=== PATIENT | female | born 1955 | race Caucasian/White ===

== ENCOUNTER 2019-06-29 14:33 | Inpatient (IN) | payer MEDICARE, OTHER ==
[2019-06-29 18:12] LABS: HCT 32.9 % (34.0-46.0); HGB 10.7 gm/dL (11.4-16.0); MCH 28.2 pg (25.0-35.0); MCHC 32.5 g/dL (31.0-37.0); MCV 86.9 fL (80.0-100.0); Mean Platelet Volume 7.5; Platelet Count 174 k/uL (150-450); RBC 3.79 m/uL (3.80-5.40); RDW 14.4 % (11.5-15.5); WBC 11.8 k/uL (3.8-10.6)
[2019-06-29] MEDS ORDERED: BISACODYL 5 MG TABLET.DR PO PRN (18:20)
[2019-06-29] MEDS ORDERED: NALOXONE 0.4 MG/ML 1 ML VIAL IV PRN (18:20)
[2019-06-29] MEDS ORDERED: ONDANSETRON 4 MG/2 ML VIAL IVP PRN (18:20)
[2019-06-29 18:23] LABS: Albumin 3.2 g/dL (3.5-5.0); Magnesium 1.3 mg/dL (1.6-2.3); Phosphorus 2.9 mg/dL (2.5-4.5); Potassium 4.2 mmol/L (3.5-5.1); Total Bilirubin 0.4 mg/dL (0.2-1.3); Total Protein 5.9 g/dL (6.3-8.2)
[2019-06-29] MEDS ORDERED: VANCOMYCIN IV PER PHARMACY 1 EACH MISC MISCELLANE PRN (18:23)
[2019-06-29] MEDS ORDERED: ALPRAZolam 0.25 MG TAB PO PRN (18:24)
[2019-06-29] MEDS ORDERED: FLUTICASONE 50MCG/SPRAY NASAL 16GM NASAL PRN (18:24)
[2019-06-29] MEDS ORDERED: CYCLOBENZAPRINE 5 MG TAB PO PRN (18:24)
--- NOTE | 2019-06-29 18:24 | XR ---
EXAMINATION TYPE: XR chest 1V portable DATE OF EXAM: 06/29/2019 COMPARISON: 03/26/2015 INDICATION: Short of breath cough TECHNIQUE: Single frontal view of the chest is obtained. FINDINGS: The heart size is normal. The pulmonary vasculature is normal. The lungs are clear. IMPRESSION: 1. No acute pulmonary process.
--- NOTE | 2019-06-29 18:29 | P.HPIM ---
History of Present Illness H&P Date: 06/29/19 Chief Complaint: fevers Patient is a 63-year-old female with past medical history of hypertension, insulin-dependent diabetes mellitus, dyslipidemia, congestive heart failure, prior pituitary tumor, and multiple other medical conditions as listed below who was transferred here from [facility] secondary to sepsis and bacteremia. She states that on June 20 she underwent a left urethral stent placed secondary to a "swollen kidney". After this she states she was having left-sided flank pain, increased urination, and excruciating pain with urination. On 06/28 she woke up and didn't feel well and then went back to bed. When she woke up again she was having chills and riders. She was so weak she felt she could not get out of bed and she subsequently called her friends to help assist her out of bed. She called Dr. Mercedes's answering service who dir ected her to come to the hospital. At [place] she underwent an extensive evaluation. She was admitted to observation. She had a CT abdomen and pelvis done which showed a double J stent on the left that appears appropriately positioned with no hydronephrosis, extensive vascular calcifications, hepatomegaly, and old granulomatous disease of the spleen. There is also uncomplicated diverticulosis of the sigmoid colon and post surgical and degenerative changes of the spine. There was concern for urinary tract infection and she was subsequently placed in observation. Initial workup demonstrated a urinalysis with white blood cells of 3-5 and red blood cells with 3-5 associated with 2+ leukocyte esterase and negative nitrites. Her lactic acid was elevated at 2.8. Influenza was negative. Initial troponin was negative. White blood cell count was 8.16, hemoglobin 12.2, hematocrit 38, platelets 195, sodium 135, potassium 4.6, chloride 106, CO2 20, BUN 16, and creatinine of 1. Liver enzymes were normal. Initial pro-calcitonin was 0.23. After admission she spiked a fever of 103.6 she was started on vancomycin and Zosyn. Apparently initial blood cultures came back positive for Gram-positive cocci. Apparently pro-calcitonin was redrawn today and was 96.1. Her lactic acid had improved to 1.2. Creatinine had increased to 1.2. This morning her initial white blood cell count was 13.47 and her troponin had increased to 0.7. They repeated blood work later this afternoon and repeat troponin was 0.851 and white blood cell count had increased to 15. Case was discussed with Dr. Mercedes who suggested patient be transferred here. Patient seen and examined at bedside. She recounts the story as above that she woke up yesterday with severe chills, rigors, and weakness. She states that her fevers and 101.1. Her major change in symptoms with a nonproductive cough that was so bad she started having abdominal pain and back pain. She also reports a headache that has been unrelenting since yesterday. She states that she continues to have dysuria, lower abdominal cramping, urinary incontinence secondary to urgent not be able to make it to the bathroom in time, and increased urinary frequency. Her urinary symptoms have been present since she had her stent placed on June 20. She has chronic diarrhea that she feels is unchanged. She is also reporting some flank pain. She has no other complaints currently. Review of Systems Pertinent positives and negatives as discussed in HPI, a complete review of systems was performed and all other systems are negative. Past Medical History Past Medical History: Asthma, Diabetes Mellitus, Hyperlipidemia, Hypertension, Osteoarthritis (OA), Skin Disorder Additional Past Medical History / Comment(s): neuropathy - feet, psoriasis, kidney stones, UTI, cellulitis History of Any Multi-Drug Resistant Organisms: None Reported Past Surgical History: Back Surgery, Cholecystectomy, Hysterectomy Additional Past Surgical History / Comment(s): lap band now removed, removed tumor from pituatary gland, EGD with ballooning of stenosis secondary to lap band Past Anesthesia/Blood Transfusion Reactions: Postoperative Nausea & Vomiting (PONV) Past Psychological History: Anxiety, Depression Smoking Status: Former smoker Additional History: Lives independently, no assistive devices - Past Family History Mother Family Medical History: Cancer, Hypertension Additional Family Medical History / Comment(s): MS Medications and Allergies Home Medications Medication Instructions Recorded Confirmed Type ALPRAZolam [Xanax] 0.25 mg PO TID PRN 06/29/19 06/29/19 History Acetaminophen Tab [Tylenol Tab] 650 mg PO BID 06/29/19 06/29/19 History Albuterol Inhaler [Ventolin Hfa 1 - 2 puff INHALATION RT-Q6H PRN 06/29/1906/29 History Inhaler] Aspirin [Adult Low Dose Aspirin EC] 81 mg PO DAILY 06/29/19 06/29/19 History Bisoprolol [Zebeta] 10 mg PO DAILY 06/29/19 06/29/19 History Budesonide/Formoterol Fumarate 06/29/19 History [Symbicort 80-4.5 Mcg Inhaler] Calcipotriene 06/29/19 History Citalopram Hydrobromide [CeleXA] 40 mg PO DAILY 06/29/19 06/29/19 History Cyclobenzaprine [Flexeril] 5 mg PO TID PRN 06/29/19 06/29/19 History Ezetimibe [Zetia] 10 mg PO DAILY 06/29/19 06/29/19 History Fenofibrate Nanocrystallized 145 mg PO DAILY 06/29/19 06/29/19 History [Tricor] Fluticasone Nasal [place] [Flonase 50 mcg NASAL PRN 06/29/19 History Nasal [place]] Insulin Glargine,Hum.rec.anlog 53 unit SQ HS 06/29/19 06/29/19 History [Basaglar Kwikpen U-100] Iron 65 mg PO DAILY 06/29/19 06/29/19 History Loratadine [Claritin] 10 mg PO PRN 06/29/19 History Losartan Potassium [Cozaar] 100 mg PO DAILY 06/29/19 06/29/19 History Pantoprazole Sodium [Protonix] 40 mg PO DAILY 06/29/19 06/29/19 History Pregabalin [Lyrica] 75 mg PO DAILY 06/29/19 06/29/19 History amLODIPine [Norvasc] 5 mg PO DAILY 06/29/19 06/29/19 History cloNIDine HCL [Catapres] 0.1 mg PO DAILY 06/29/19 06/29/19 History metFORMIN HCL 1,000 mg PO BID 06/29/19 06/29/19 History Allergies Allergy/AdvReac Type Severity Reaction Status Date / Time acetaminophen Allergy Nausea & Verified 06/29/19 17:07 [From Darvocet-N] Vomiting ciprofloxacin [From Cipro] Allergy Nausea & Verified 06/29/19 17:07 Vomiting codeine Allergy Nausea & Verified 06/29/19 17:07 Vomiting lisinopril Allergy Cough Verified 06/29/19 17:07 morphine Allergy Itching Verified 06/29/19 17:07 propoxyphene Allergy Nausea & Verified 06/29/19 17:07 [From Darvocet-N] Vomiting sulfamethoxazole Allergy Rash/Hives Verified 06/29/19 17:07 [From Bactrim] tramadol [From Ultram] Allergy Nausea & Verified 06/29/19 17:07 Vomiting trimethoprim [From Bactrim] Allergy Rash/Hives Verified 06/29/19 17:07 ketorolac [From Toradol] AdvReac Nausea & Verified 06/29/19 17:54 Vomiting Physical Exam Osteopathic Statement: *. No significant issues noted on an osteopathic structural exam other than those noted in the History and Physical/Consult. Vitals: Vital Signs Temp Pulse Resp BP Pulse Ox 06/29/19 16:30 98.1 F 83 16 140/72 96 Intake and Output 06/29/19 06/29/19 06/29/19 06:59 14:59 22:59 Other: Weight 106 kg General: Ill-appearing, no distress, appears at stated age, normal weight, obese Derm: no unusual rashes/lesions no unusual ecchymoses, warm, dry Head: atraumatic, normocephalic, symmetric Eyes: EOMI, no lid lag, anicteric sclera, pupils equal round reactive to light ENT: Nose and ears atraumatic, no thrush, no pharyngeal erythema Neck: No thyromegaly, no cervical lymphadenopathy, trachea midline, supple Mouth: no lip lesion, mucus membranes dry Cardiovascular: S1S2 reg, no murmur, positive posterior tibial pulse bilateral, no edema, capillary refill less than 2 seconds Lungs: Decreased breath sounds bilateral secondary to body habitus, no rhonchi, no rales , no accessory muscle use Abdominal: soft, nontender to palpation, no guarding, no appreciable organomegaly, normal bowel sounds Ext: no gross muscle atrophy, muscle strength 5 out of 5 in all 4 extremities grossly, no contractures, Neuro: CN II-XI grossly intact, light touch intact all 4 extremities, finger to nose within normal limits, Psych: Alert, oriented, appropriate affect Results CT scan - abdomen: report reviewed CT scan - pelvis: report reviewed Thrombosis Risk Factor Assmnt - DVT/VTE Prophylaxis DVT/VTE Prophylaxis: Mechanical Prophylaxis ordered - Choose All That Apply Each Factor Represents 1 point: Obesity (BMI >25) Each Risk Factor Represents 2 Points: Age 61-74 years Thrombosis Risk Factor Assessment Total Risk Factor Score: 3 Thrombosis Risk Factor Assessment Level: Moderate Risk Assessment and Plan Assessment: Bacteremia with sepsis - Gram positive cocci per verbal report from Dr. Shelton - [place] -IV fluids -Repeat blood culture stat -Check chest x-ray secondary to patient's complaints of cough -Repeat urinalysis -Repeat lactic acid -Pro calcitonin 96.2 up from 0.23 likely consistent with pulmonary source or severe sepsis -Repeat stat CBC Recent urethral stent placement -Initial urinalysis from [facility] does not appear infectious to me -Repeat urinalysis -Consult Dr. Mercedes Diabetes mellitus type 2 insulin requiring -Continue with long-acting insulin, add sliding scale, hold metformin -Follow blood sugars -Check hemoglobin A1c Elevated troponin - likely stress induced - repeat troponin Hypertension, controlled -Follow blood pressures -Continue with Cozaar, Catapres, Norvasc, bisoprolol Asthma without exacerbation -Continue with Flonase, Claritin, Symbicort -As needed albuterol Neuropathy -Lyrica Dyslipidemia -Zetia and TriCor Morbid obesity -Structured outpatient weight loss Chronic: Arthritis History of congestive heart failure before pituitary tumor was removed, however has not had again since pituitary tumor was removed The patient is admitted with an anticipated greater than 2 midnight stay for evaluation of Bacteremia with sepsis. Surrogate decision-maker: Daughter- Amanda Clark CODE STATUS:Full DVT prophylaxis: SCDs Discussed with: Patient, nursing, Dr. Shelton Anticipated discharge date: 3-[address]: home A total of 75 minutes was spent on the care of this complex patient more than 50% of the time was spent in counseling and care coordination.
[2019-06-29 18:42] LABS: INR 1.1 (<1.2); Prothrombin Time 11.5 sec (9.0-12.0)
[2019-06-29] MEDS: KETOROLAC 30 MG/ML 1 ML VIAL IVP PRN (19:15)
[2019-06-29] MEDS: ACETAMINOPHEN TAB 325 MG TAB PO PRN (19:16)
[2019-06-29] MEDS: SODIUM CHLORIDE 0.9% 1,000 ML IV SCH (19:20)
[2019-06-29 19:46] LABS: Glucose,Whole Blood 154 mg/dL (75-99)
[2019-06-29] MEDS ORDERED: VANCOMYCIN 1,750 MG in SODIUM CHLORIDE 0.9% 500 ML 500 ML IVPB SCH (20:00)
[2019-06-29] MEDS: SYMBICORT 80-4.5 MCG INHALER INHALATION SCH (20:18)
[2019-06-29] MEDS: INSULIN DETEMIR (LEVEMIR) 100 UNIT/ML SYR SQ SCH (21:19)
[2019-06-29] MEDS: INSULIN ASPART (NovoLOG) 100 UNIT/ML VIAL SQ SCH (21:19)
--- NOTE | 2019-06-29 21:20 | P.GSCN ---
History of Present Illness Consult date: 06/29/19 Reason for Consult: Sepsis from UTI and history of left hydronephrosis History of present illness: The patient is a 63-year-old female transferred from [facility] for treatment of sepsis related to a urinary tract infection. Her history dates back to earlier this year and she describes being treated for several urinary tract infections. She says she's also passed 2 kidney stones. She was seen by Dr. Rocha and apparently noted to have an elevated post void residual at the time of cystoscopy and left hydronephrosis on a renal ultrasound. She underwent cystoscopy on 06/20 as an outpatient under general anesthesia and apparently was found to have some scarring in the left ureter which was treated with placement of a double-J catheter. The patient does not believe any residual stones were noted. She was treated with Keflex for 3 days following the surgery. Yesterday morning she developed shaking chills and a fever. She also had a cough. She called me and I instructed her to go to her local emergency room for evaluation. She was admitted due to a temperature 103 and was started on IV antibiotics. I was told a preliminary urine culture apparently is growing a gram-positive coccus and the patient is currently receiving Zosyn and vancomycin. The patient says that her chills and fever have resolved since yesterday evening. She did have a lactic acid of 2.8 at the time of admission and a white blood count over 13,000. CT scan was obtained but there was no evidence of hydronephrosis on the left side and the double-J catheter appeared to be in good position. CXR showed no evidence of pneumonia. Due to her sepsis it was elected to transfer her to a hospital that could better care for her sepsis. The patient says she usually voids every 2-3 hours during the day and once or twice at night. She says that she's been voiding more frequently ever since she had the double-J catheter placed. She says she is also voiding more frequently because she was told she had an elevated postvoid residual and that voiding frequently and double voiding would be helpful. Review of Systems - Constitutional Reports chills, Reports fever - Cardiovascular Reports high blood pressure - Respiratory Reports cough - Gastrointestinal Denies abdominal pain - Genitourinary Genitourinary: Reports as per HPI Past Medical History Past Medical History: Asthma, Diabetes Mellitus, Hyperlipidemia, Hypertension, Osteoarthritis (OA), Skin Disorder Additional Past Medical History / Comment(s): neuropathy - feet, psoriasis, kidney stones, UTI, cellulitis History of Any Multi-Drug Resistant Organisms: None Reported Past Surgical History: Back Surgery, Cholecystectomy, Hysterectomy Additional Past Surgical History / Comment(s): lap band now removed, 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, EGD with ballooning of stenosis secondary to lap band Past Anesthesia/Blood Transfusion Reactions: Postoperative Nausea & Vomiting (PONV) Past Psychological History: Anxiety, Depression Smoking Status: Former smoker - Past Family History Mother Family Medical History: Cancer, Hypertension Additional Family Medical History / Comment(s): MS Medications and Allergies Home Medications Medication Instructions Recorded Confirmed Type ALPRAZolam [Xanax] 0.25 mg PO TID PRN 06/29/19 06/29/19 History Acetaminophen Tab [Tylenol Tab] 650 mg PO BID 06/29/19 06/29/19 History Albuterol Inhaler [Ventolin Hfa 1 - 2 puff INHALATION RT-Q6H PRN 06/29/19 06/29/19 History Inhaler] Aspirin [Adult Low Dose Aspirin EC] 81 mg PO DAILY 06/29/19 06/29/19 History Bisoprolol [Zebeta] 10 mg PO DAILY 06/29/19 06/29/19 History Budesonide/Formoterol Fumarate 06/29/19 History [Symbicort 80-4.5 Mcg Inhaler] Calcipotriene 06/29/19 History Citalopram Hydrobromide [CeleXA] 40 mg PO DAILY 06/29/19 06/29/19 History Cyclobenzaprine [Flexeril] 5 mg PO TID PRN 06/29/19 06/29/19 History Ezetimibe [Zetia] 10 mg PO DAILY 06/29/19 06/29/19 History Fenofibrate Nanocrystallized 145 mg PO DAILY 06/29/19 06/29/19 History [Tricor] Fluticasone Nasal [place] [Flonase 50 mcg NASAL PRN 06/29/19 History Nasal [place]] Insulin Glargine,Hum.rec.anlog 53 unit SQ HS 06/29/19 06/29/19 History [Cataglmanoj Matos U-100] Iron 65 mg PO DAILY 06/29/19 06/29/19 History Loratadine [Claritin] 10 mg PO PRN 06/29/19 History Losartan Potassium [Cozaar] 100 mg PO DAILY 06/29/19 06/29/19 History Pantoprazole Sodium [Protonix] 40 mg PO DAILY 06/29/19 06/29/19 History Pregabalin [Lyrica] 75 mg PO DAILY 06/29/19 06/29/19 History amLODIPine [Norvasc] 5 mg PO DAILY 06/29/19 06/29/19 History cloNIDine HCL [Catapres] 0.1 mg PO DAILY 06/29/19 06/29/19 History metFORMIN HCL 1,000 mg PO BID 06/29/19 06/29/19 History Allergies Allergy/AdvReac Type Severity Reaction Status Date / Time acetaminophen Allergy Nausea & Verified 06/29/19 17:07 [From Darvocet-N] Vomiting ciprofloxacin [From Cipro] Allergy Nausea & Verified 06/29/19 17:07 Vomiting codeine Allergy Nausea & Verified 06/29/19 17:07 Vomiting lisinopril Allergy Cough Verified 06/29/19 17:07 morphine Allergy Itching Verified 06/29/19 17:07 propoxyphene Allergy Nausea & Verified 06/29/19 17:07 [From Darvocet-N] Vomiting sulfamethoxazole Allergy Rash/Hives Verified 06/29/19 17:07 [From Bactrim] tramadol [From Ultram] Allergy Nausea & Verified 06/29/19 17:07 Vomiting trimethoprim [From Bactrim] Allergy Rash/Hives Verified 06/29/19 17:07 ketorolac [From Toradol] AdvReac Nausea & Verified 06/29/19 17:54 Vomiting Surgical - Exam Vital Signs Temp Pulse Resp BP Pulse Ox 98.1 F 83 16 140/72 96 06/29/19 16:30 06/29/19 16:30 06/29/19 16:30 06/29/19 16:30 06/29/19 16:30 - General well developed, well nourished, no distress, obese - ENT no hearing loss - Neck no masses, no lymphadectomy - Respiratory normal expansion, normal respiratory effort - Abdomen Abdomen: soft, non tender, no organomegaly Results - Labs 06/29/19 18:01 06/29/19 18:01 Abnormal Lab Results - Last 24 Hours (Table) 06/29/19 06/29/19 06/29/19 Range/Units 18:01 18:01 18:01 WBC 11.8 H (3.8-10.6) k/uL RBC 3.79 L (3.80-5.40) m/uL Hgb 10.7 L (11.4-16.0) gm/dL Hct 32.9 L (34.0-46.0) % Chloride 111 H (98-107) mmol/L Carbon Dioxide 21 L (22-30) mmol/L BUN 19 H (7-17) mg/dL Creatinine 1.17 H (0.52-1.04) mg/dL Glucose 147 H (74-99) mg/dL POC Glucose (mg/dL) (75-99) mg/dL Magnesium 1.3 L (1.6-2.3) mg/dL Troponin I 0.041 H* (0.000-0.034) ng/mL Total Protein 5.9 L (6.3-8.2) g/dL Albumin 3.2 L (3.5-5.0) g/dL 06/29/19 Range/Units 19:45 WBC (3.8-10.6) k/uL RBC (3.80-5.40) m/uL Hgb (11.4-16.0) gm/dL Hct (34.0-46.0) % Chloride (98-107) mmol/L Carbon Dioxide (22-30) mmol/L BUN (7-17) mg/dL Creatinine (0.52-1.04) mg/dL Glucose (74-99) mg/dL POC Glucose (mg/dL) 154 H (75-99) mg/dL Magnesium (1.6-2.3) mg/dL Troponin I (0.000-0.034) ng/mL Total Protein (6.3-8.2) g/dL Albumin (3.5-5.0) g/dL Diabetes panel 06/29/19 Range/Units 18:01 Sodium 138 (137-145) mmol/L Potassium 4.2 (3.5-5.1) mmol/L Chloride 111 H (98-107) mmol/L Carbon Dioxide 21 L (22-30) mmol/L BUN 19 H (7-17) mg/dL Creatinine 1.17 H (0.52-1.04) mg/dL Glucose 147 H (74-99) mg/dL Calcium 9.0 (8.4-10.2) mg/dL AST 20 (14-36) U/L ALT 18 (9-52) U/L Alkaline Phosphatase 48 (38-126) U/L Total Protein 5.9 L (6.3-8.2) g/dL Albumin 3.2 L (3.5-5.0) g/dL Calcium panel 06/29/19 Range/Units 18:01 Calcium 9.0 (8.4-10.2) mg/dL Phosphorus 2.9 (2.5-4.5) mg/dL Albumin 3.2 L (3.5-5.0) g/dL Pituitary panel 06/29/19 Range/Units 18:01 Sodium 138 (137-145) mmol/L Potassium 4.2 (3.5-5.1) mmol/L Chloride 111 H (98-107) mmol/L Carbon Dioxide 21 L (22-30) mmol/L BUN 19 H (7-17) mg/dL Creatinine 1.17 H (0.52-1.04) mg/dL Glucose 147 H (74-99) mg/dL Calcium 9.0 (8.4-10.2) mg/dL Adrenal panel 06/29/19 Range/Units 18:01 Sodium 138 (137-145) mmol/L Potassium 4.2 (3.5-5.1) mmol/L Chloride 111 H (98-107) mmol/L Carbon Dioxide 21 L (22-30) mmol/L BUN 19 H (7-17) mg/dL Creatinine 1.17 H (0.52-1.04) mg/dL Glucose 147 H (74-99) mg/dL Calcium 9.0 (8.4-10.2) mg/dL Total Bilirubin 0.4 (0.2-1.3) mg/dL AST 20 (14-36) U/L ALT 18 (9-52) U/L Alkaline Phosphatase 48 (38-126) U/L Total Protein 5.9 L (6.3-8.2) g/dL Albumin 3.2 L (3.5-5.0) g/dL Assessment and Plan (1) Sepsis Narrative/Plan: Sepsis secondary to urinary tract infection. The transferring physician told me that a preliminary urine culture was growing a gram-positive cocci and in view of this a combination of vancomycin and Zosyn are appropriate. The patient's le ft hydronephrosis has been treated with placement of a double-J catheter which is in good position. Dr Rocha will reevaluate the patient tomorrow but at this time there does not appear to be any need for any specific urologic intervention. Current Visit: Yes Status: Acute Code(s): A41.9 - SEPSIS, UNSPECIFIED ORGANISM SNOMED Code(s): 41451302
[2019-06-29] MEDS: MELATONIN 3 MG TABLET PO PRN (21:25)
[2019-06-30] MEDS: MAGNESIUM SULFATE-D5W PMX 1 GM in DEXTROSE/WATER 1 100ML.BAG IVPB SCH ×4 (01:06→05:15)
[2019-06-30 01:25] LABS: Appearance,Urine Cloudy (Clear); Bilirubin,Urine Negative (Negative); Blood,Urine Moderate (Negative); Color,Urine Yellow; Glucose,Urine (UA) Negative (Negative); Ketones,Urine Negative (Negative); Leukocyte Esterase,Urine Large (Negative); Nitrite,Urine Negative (Negative); PH, Urine 5.5 (5.0-8.0); Protein,Urine Trace (Negative); RBC,Urine 39 /hpf (0-5); Renal Epithelial Cells,Urine 14 /hpf (0); Specific Gravity,Urine 1.011 (1.001-1.035); Squamous Epithelial Cell,Urine 1 /hpf (0-4); Urobilinogen,Urine <2.0 mg/dL (<2.0)
[2019-06-30] MEDS: ACETAMINOPHEN TAB 325 MG TAB PO PRN ×4 (01:34→21:08)
[2019-06-30] MEDS: KETOROLAC 30 MG/ML 1 ML VIAL IVP PRN (01:35)
[2019-06-30] MEDS: SODIUM CHLORIDE 0.9% 1,000 ML IV SCH ×2 (05:14→11:32)
[2019-06-30 06:56] LABS: Glucose,Whole Blood 128 mg/dL (75-99)
[2019-06-30 07:47] LABS: HCT 31.7 % (34.0-46.0); HGB 10.4 gm/dL (11.4-16.0); MCH 28.4 pg (25.0-35.0); MCHC 32.7 g/dL (31.0-37.0); MCV 86.8 fL (80.0-100.0); Mean Platelet Volume 7.7; Platelet Count 172 k/uL (150-450); RBC 3.66 m/uL (3.80-5.40); RDW 14.3 % (11.5-15.5); WBC 8.9 k/uL (3.8-10.6)
[2019-06-30 07:56] LABS: Calcium 9.2 mg/dL (8.4-10.2); Magnesium 2.6 mg/dL (1.6-2.3); Potassium 4.1 mmol/L (3.5-5.1)
[2019-06-30] MEDS: INSULIN ASPART (NovoLOG) 100 UNIT/ML VIAL SQ SCH ×4 (08:08→20:21)
[2019-06-30] MEDS: amLODIPine 5 MG TAB PO SCH (08:18)
[2019-06-30] MEDS: PANTOPRAZOLE 40 MG TABLET PO SCH (08:18)
[2019-06-30] MEDS: CITALOPRAM HYDROBROMIDE 20 MG TAB PO SCH (08:18)
[2019-06-30] MEDS: ASPIRIN 81 MG PO SCH (08:18)
[2019-06-30] MEDS: SYMBICORT 80-4.5 MCG INHALER INHALATION SCH ×2 (08:18→20:19)
[2019-06-30] MEDS: LOSARTAN 50 MG TAB PO SCH (08:19)
[2019-06-30] MEDS: LORATADINE 10 MG TAB PO PRN (08:19)
[2019-06-30] MEDS: PREGABALIN 75 MG CAP PO SCH (08:21)
[2019-06-30] MEDS: EZETIMIBE 10 MG TAB PO SCH (08:25)
[2019-06-30] MEDS: BISOPROLOL 5 MG TAB PO SCH (08:25)
[2019-06-30] MEDS: FENOFIBRATE 160 MG TAB PO SCH (08:25)
[2019-06-30] MEDS ORDERED: cloNIDine HCL 0.1 MG TAB PO SCH (09:00)
[2019-06-30] MEDS ORDERED: IRON 65 MG PO SCH (09:00)
[2019-06-30 11:13] LABS: Glucose,Whole Blood 167 mg/dL (75-99)
[2019-06-30] MEDS ORDERED: VANCOMYCIN 1,750 MG in SODIUM CHLORIDE 0.9% 500 ML 500 ML IVPB SCH (12:00)
--- NOTE | 2019-06-30 14:29 | P.PN ---
Subjective Progress Note Date: 06/30/19 (delayed charting seen at 1100) Principal diagnosis: Fatigue Patient is a 63-year-old female with past medical history of hypertension, insulin-dependent diabetes mellitus, dyslipidemia, congestive heart failure, prior pituitary tumor, and multiple other medical conditions as listed below who was transferred here from [facility] secondary to sepsis and bacteremia. She states that on June 20 she underwent a left urethral stent placed secondary to hydronephrosis. After this she states she was having left-sided flank pain, increased urination, and excruciating pain with urination. On 06/28 she woke up and didn't feel well and then went back to bed. When she woke up again she was having chills and rigors. She was so weak she felt she could not get out of bed and she subsequently called her friends to help assist her out of bed. She called Dr. Mercedes's answering service who directed her to come to the hospital. At [place] she underwent an extensive evaluation. She was admitted to observation. She had a CT abdomen and pelvis done which showed a double J stent on the left that appears appropriately positioned with no hydronephrosis, extensive vascular calcifications, hepatomegaly, and old granulomatous disease of the spleen. There is also uncomplicated diverticulosis of the sigmoid colon and post surgical and degenerative changes of the spine. There was concern for urinary tract infection and she was subsequently placed in observation. Initial workup demonstrated a urinalysis with white blood cells of 3-5 and red blood cells with 3-5 associated with 2+ leukocyte esterase and negative nitrites. Her lactic acid was elevated at 2.8. Influenza was negative. Initial troponin was negative. White blood cell count was 8.16, hemoglobin 12.2, hematocrit 38, platelets 195, sodium 135, potassium 4.6, chloride 106, CO2 20, BUN 16, and creatinine of 1. Liver enzymes were normal. Initial pro-calcitonin was 0.23. After admission she spiked a fever of 103.6 she was started on vancomycin and Zosyn. Apparently initial blood cultures came back positive for Gram-positive cocci. Apparently pro-calcitonin was redrawn 06/29 and was 96.1. Her lactic acid had improved to 1.2. Creatinine had increased to 1.2. On the morning of 06/29 her initial white blood cell count was 13.47 and her troponin had increased to 0.7. They repeated blood work later that afternoon and repeat troponin was 0.851 and white blood cell count had increased to 15. Case was discussed with Dr. Mercedes who suggested patient be transferred here. On arrival here her white blood cell count is 11.8, chloride 111, carbon dioxide 21, creatinine 1.17, magnesium 1.3, and troponin 0.041. Repeat urinalysis showed a white blood cell count of 68 with red blood cells of 39. On the morning of 06/30 blood cultures came back with gram-negative bacilli. Tia was recontacted to verify that all cultures are growing gram-negative bacilli and not Gram-positive cocci. Patient seen and examined at bedside. Her weakness and fatigue is somewhat better than yesterday. Nausea is better. Headache and flank pain are somewhat decreased pain. No diarrhea. Objective - Vital Signs Vital signs: Vital Signs Temp 98 F 06/30/19 12:04 Pulse 71 06/30/19 12:04 Resp 17 06/30/19 12:04 BP 150/78 06/30/19 12:04 Pulse Ox 96 06/30/19 12:04 Intake & Output 06/29/19 06/30/19 06/30/19 18:59 06:59 18:59 Intake Total 1375 Balance 1375 Weight 106 kg Intake: Intake, IV Titration 1175 Amount Sodium Chloride 0.9% 1, 625 000 ml @ 125 mls/hr IV . Q8H [facility] Rx#:[id number] Vancomycin 1,750 mg In 500 Sodium Chloride 0.9% 500 ml 500 ml @ 167 mls/hr IVPB Q24H [facility] Rx#: [id number] cefTRIAXone 2 gm In 50 Sodium Chloride 0.9% 50 ml @ 100 mls/hr IVPB Q24HR [facility] Rx#:[id number] Oral 200 Other: Voiding Method Toilet Toilet # Voids 1 # Bowel Movements 1 - Exam General: ill appearing, no distress, appears at stated age, obese Derm: warm, dry Head: atraumatic, normocephalic, symmetric Eyes: EOMI, no lid lag, anicteric sclera Mouth: no lip lesion, mucus membranes moist Cardiovascular: S1S2 reg, no murmur, positive posterior tibial pulse bilateral, Lungs: CTA bilateral, no rhonchi, no rales , no accessory muscle use Abdominal: soft, nontender to palpation, no guarding, no appreciable organomegaly Ext: no gross muscle atrophy, no edema, no contractures Neuro: CN II-XI grossly intact, no focal neuro deficits Psych: Alert, oriented, appropriate affect - Labs CBC & Chem 7: 06/30/19 07:09 06/30/19 07:09 Labs: Abnormal Lab Results - Last 24 Hours (Table) 06/29/19 06/29/19 06/29/19 Range/Units 18:01 18:01 18:01 WBC 11.8 H (3.8-10.6) k/uL RBC 3.79 L (3.80-5.40) m/uL Hgb 10.7 L (11.4-16.0) gm/dL Hct 32.9 L (34.0-46.0) % Chloride 111 H (98-107) mmol/L Carbon Dioxide 21 L (22-30) mmol/L BUN 19 H (7-17) mg/dL Creatinine 1.17 H (0.52-1.04) mg/dL Glucose 147 H (74-99) mg/dL POC Glucose (mg/dL) (75-99) mg/dL Magnesium 1.3 L (1.6-2.3) mg/dL Troponin I 0.041 H* (0.000-0.034) ng/mL Total Protein 5.9 L (6.3-8.2) g/dL Albumin 3.2 L (3.5-5.0) g/dL Urine Appearance (Clear) Urine Protein (Negative) Urine Blood (Negative) Ur Leukocyte Esterase (Negative) Urine RBC (0-5) /hpf Urine WBC (0-5) /hpf Urine WBC Clumps (None) /hpf 06/29/19 06/30/19 06/30/19 Range/Units 19:45 01:02 06:54 WBC (3.8-10.6) k/uL RBC (3.80-5.40) m/uL Hgb (11.4-16.0) gm/dL Hct (34.0-46.0) % Chloride (98-107) mmol/L Carbon Dioxide (22-30) mmol/L BUN (7-17) mg/dL Creatinine (0.52-1.04) mg/dL Glucose (74-99) mg/dL POC Glucose (mg/dL) 154 H 128 H (75-99) mg/dL Magnesium (1.6-2.3) mg/dL Troponin I (0.000-0.034) ng/mL Total Protein (6.3-8.2) g/dL Albumin (3.5-5.0) g/dL Urine Appearance Cloudy H (Clear) Urine Protein Trace H (Negative) Urine Blood Moderate H (Negative) Ur Leukocyte Esterase Large H (Negative) Urine RBC 39 H (0-5) /hpf Urine WBC 60 H (0-5) /hpf Urine WBC Clumps Few H (None) /hpf 06/30/19 06/30/19 06/30/19 Range/Units 07:09 07:09 11:10 WBC (3.8-10.6) k/uL RBC 3.66 L (3.80-5.40) m/uL Hgb 10.4 L (11.4-16.0) gm/dL Hct 31.7 L (34.0-46.0) % Chloride 112 H (98-107) mmol/L Carbon Dioxide 21 L (22-30) mmol/L BUN (7-17) mg/dL Creatinine (0.52-1.04) mg/dL Glucose 127 H (74-99) mg/dL POC Glucose (mg/dL) 167 H (75-99) mg/dL Magnesium 2.6 H (1.6-2.3) mg/dL Troponin I (0.000-0.034) ng/mL Total Protein (6.3-8.2) g/dL Albumin (3.5-5.0) g/dL Urine Appearance (Clear) Urine Protein (Negative) Urine Blood (Negative) Ur Leukocyte Esterase (Negative) Urine RBC (0-5) /hpf Urine WBC (0-5) /hpf Urine WBC Clumps (None) /hpf Microbiology - Last 24 Hours (Table) 06/30/19 01:02 Urine Culture - Preliminary Urine,Clean Catch 06/29/19 18:01 Blood Culture Gram Stain - Preliminary Blood 06/29/19 18:01 Blood Culture - Final Blood Assessment and Plan Assessment: urinary tract infection with gram-negative bacilli and sepsis at prior facility - Vanco discontinued and continue Rocephin -IV fluids change to 0.45 due to hyperchloremia - await final blood and urine cultures - urology recs Recent urethral stent placement - repeat UA with signs of infection -urology recs appreciated Diabetes mellitus type 2 insulin requiring -Continue with long-acting insulin, sliding scale, hold metformin -Follow blood sugars -Hemoglobin A1c pending Elevated troponin due to stress - likely stress induced - repeat troponin down trending - check ECHO Hyperchloremic metabolic acidosis - change to 0.45 NS - repeat BMP Hypertension, controlled -Follow blood pressures -Continue with Cozaar, Catapres, Norvasc, bisoprolol Asthma without exacerbation -Continue with Flonase, Claritin, Symbicort -As needed albuterol Neuropathy -Lyrica Dyslipidemia -Zetia and TriCor Morbid obesity -Structured outpatient weight loss Chronic: Arthritis History of congestive heart failure before pituitary tumor was removed, however has not had again since pituitary tumor was removed CODE STATUS:Full DVT prophylaxis: SCDs Discussed with: Patient, nursing Anticipated discharge date: in 1-[address]: home A total of 25 minutes was spent on the care of this complex patient more than 50% of the time was spent in counseling and care coordination.
[2019-06-30 15:32] LABS: Hemoglobin A1C 8.1 % (4.0-6.0)
[2019-06-30 17:06] LABS: Glucose,Whole Blood 229 mg/dL (75-99)
[2019-06-30] MEDS: SODIUM CHLORIDE 0.45% 1,000 ML IV SCH (18:13)
[2019-06-30 20:15] LABS: Glucose,Whole Blood 246 mg/dL (75-99)
[2019-06-30] MEDS: cloNIDine HCL 0.1 MG TAB PO SCH (20:21)
[2019-06-30] MEDS: INSULIN DETEMIR (LEVEMIR) 100 UNIT/ML SYR SQ SCH (20:22)
--- NOTE | 2019-06-30 21:40 | P.PN ---
Subjective Progress Note Date: 06/30/19 Principal diagnosis: Sepsis 63 yo female admitted to the hospital for Sepsis secondary to urinary tract infection. The transferring physician told me that a preliminary urine culture was growing a gram-negative bacilli, no acute overnight event, patient is afebrile and feeling better this am Objective - Vital Signs Vital signs: Vital Signs Temp 98.1 F 06/30/19 20:00 Pulse 79 06/30/19 20:00 Resp 16 06/30/19 20:00 BP 156/102 06/30/19 20:00 Pulse Ox 97 06/30/19 20:00 Intake & Output 06/30/19 06/30/19 07/01/19 06:59 18:59 06:59 Intake Total 1375 1240 590 Balance 1375 1240 590 Intake: Intake, IV Titration 1175 640 Amount Sodium Chloride 0.45% 1, 640 000 ml @ 75 mls/hr IV . [id number] [facility] Rx#:[id number] Sodium Chloride 0.9% 1, 625 000 ml @ 125 mls/hr IV . Q8H [facility] Rx#:[id number] Vancomycin 1,750 mg In 500 Sodium Chloride 0.9% 500 ml 500 ml @ 167 mls/hr IVPB Q24H [facility] Rx#: [id number] cefTRIAXone 2 gm In 50 Sodium Chloride 0.9% 50 ml @ 100 mls/hr IVPB Q24HR [facility] Rx#:[id number] Oral 200 600 590 Other: Voiding Method Toilet Toilet # Voids 1 # Bowel Movements 1 - Constitutional General appearance: Present: cooperative, no acute distress - EENT ENT: Present: hearing grossly normal - Neck Neck: Present: normal ROM. Absent: rigidity - Gastrointestinal General gastrointestinal: Absent: distended, rigid - Psychiatric Psychiatric: Present: A&O x's 3 - Labs CBC & Chem 7: 06/30/19 07:09 06/30/19 07:09 Labs: Abnormal Lab Results - Last 24 Hours (Table) 06/30/19 06/30/19 06/30/19 Range/Units 01:02 06:54 07:09 RBC (3.80-5.40) m/uL Hgb (11.4-16.0) gm/dL Hct (34.0-46.0) % Chloride (98-107) mmol/L Carbon Dioxide (22-30) mmol/L Glucose (74-99) mg/dL POC Glucose (mg/dL) 128 H (75-99) mg/dL Hemoglobin A1c 8.1 H (4.0-6.0) % Magnesium (1.6-2.3) mg/dL Troponin I (0.000-0.034) ng/mL Urine Appearance Cloudy H (Clear) Urine Protein Trace H (Negative) Urine Blood Moderate H (Negative) Ur Leukocyte Esterase Large H (Negative) Urine RBC 39 H (0-5) /hpf Urine WBC 60 H (0-5) /hpf Urine WBC Clumps Few H (None) /hpf 06/30/19 06/30/19 06/30/19 Range/Units 07:09 07:09 07:09 RBC 3.66 L (3.80-5.40) m/uL Hgb 10.4 L (11.4-16.0) gm/dL Hct 31.7 L (34.0-46.0) % Chloride 112 H (98-107) mmol/L Carbon Dioxide 21 L (22-30) mmol/L Glucose 127 H (74-99) mg/dL POC Glucose (mg/dL) (75-99) mg/dL Hemoglobin A1c (4.0-6.0) % Magnesium 2.6 H (1.6-2.3) mg/dL Troponin I 0.048 H* (0.000-0.034) ng/mL Urine Appearance (Clear) Urine Protein (Negative) Urine Blood (Negative) Ur Leukocyte Esterase (Negative) Urine RBC (0-5) /hpf Urine WBC (0-5) /hpf Urine WBC Clumps (None) /hpf 06/30/19 06/30/19 06/30/19 Range/Units 11:10 16:51 20:13 RBC (3.80-5.40) m/uL Hgb (11.4-16.0) gm/dL Hct (34.0-46.0) % Chloride (98-107) mmol/L Carbon Dioxide (22-30) mmol/L Glucose (74-99) mg/dL POC Glucose (mg/dL) 167 H 229 H 246 H (75-99) mg/dL Hemoglobin A1c (4.0-6.0) % Magnesium (1.6-2.3) mg/dL Troponin I (0.000-0.034) ng/mL Urine Appearance (Clear) Urine Protein (Negative) Urine Blood (Negative) Ur Leukocyte Esterase (Negative) Urine RBC (0-5) /hpf Urine WBC (0-5) /hpf Urine WBC Clumps (None) /hpf Microbiology - Last 24 Hours (Table) 06/30/19 01:02 Urine Culture - Preliminary Urine,Clean Catch 06/29/19 18:01 Blood Culture Gram Stain - Preliminary Blood 06/29/19 18:01 Blood Culture - Final Blood Assessment and Plan Assessment: 63 yo S/P left ureteroscopy on 06/20 which showed ureteral stricture. Patient admitted for Sepsis secondary to urinary tract infection. Blood culture at outside hospital showing gram negative bacilli. Plan: -Continue abx -No surgical intervention from urology standpoint -F/U in urology clinic in one week
[2019-07-01] MEDS: MELATONIN 3 MG TABLET PO PRN (00:12)
[2019-07-01 07:02] LABS: Glucose,Whole Blood 126 mg/dL (75-99)
[2019-07-01] MEDS: SODIUM CHLORIDE 0.45% 1,000 ML IV SCH ×3 (07:45→18:41)
[2019-07-01] MEDS: INSULIN ASPART (NovoLOG) 100 UNIT/ML VIAL SQ SCH ×4 (07:54→21:35)
[2019-07-01 07:57] LABS: HCT 29.9 % (34.0-46.0); HGB 9.5 gm/dL (11.4-16.0); MCH 27.6 pg (25.0-35.0); MCHC 31.7 g/dL (31.0-37.0); Mean Platelet Volume 7.4; Platelet Count 184 k/uL (150-450); RBC 3.44 m/uL (3.80-5.40); RDW 14.1 % (11.5-15.5); WBC 7.3 k/uL (3.8-10.6)
[2019-07-01] MEDS: PANTOPRAZOLE 40 MG TABLET PO SCH (08:03)
[2019-07-01] MEDS: amLODIPine 5 MG TAB PO SCH (08:03)
[2019-07-01] MEDS: PREGABALIN 75 MG CAP PO SCH (08:03)
[2019-07-01] MEDS: ASPIRIN 81 MG PO SCH (08:03)
[2019-07-01] MEDS: LOSARTAN 50 MG TAB PO SCH (08:03)
[2019-07-01] MEDS: CITALOPRAM HYDROBROMIDE 20 MG TAB PO SCH (08:03)
[2019-07-01] MEDS: FENOFIBRATE 160 MG TAB PO SCH (08:04)
[2019-07-01] MEDS: BISOPROLOL 5 MG TAB PO SCH (08:04)
[2019-07-01] MEDS: EZETIMIBE 10 MG TAB PO SCH (08:04)
[2019-07-01] MEDS: ACETAMINOPHEN TAB 325 MG TAB PO PRN ×2 (08:08→21:32)
[2019-07-01 08:12] LABS: Calcium 8.8 mg/dL (8.4-10.2); Potassium 4.4 mmol/L (3.5-5.1)
[2019-07-01] MEDS: SYMBICORT 80-4.5 MCG INHALER INHALATION SCH ×2 (08:16→21:16)
[2019-07-01 12:03] LABS: Glucose,Whole Blood 155 mg/dL (75-99)
--- NOTE | 2019-07-01 15:06 | P.PN ---
Subjective Progress Note Date: 07/01/19 Principal diagnosis: Bacteremia patient doing well, no urinary symptoms today. No dysuria or frequency. No fevers or chills. Objective - Vital Signs Vital signs: Vital Signs Temp 98.9 F 07/01/19 12:14 Pulse 64 07/01/19 12:14 Resp 17 07/01/19 12:14 BP 178/96 07/01/19 12:14 Pulse Ox 94 L 07/01/19 12:14 Intake & Output 06/30/19 07/01/19 07/01/19 18:59 06:59 18:59 Intake Total 1240 1190 Balance 1240 1190 Intake: Intake, IV Titration 640 600 Amount Sodium Chloride 0.45% 1, 640 600 000 ml @ 75 mls/hr IV . [id number] [facility] Rx#:[id number] Oral 600 590 Other: Voiding Method Toilet Toilet Toilet # Voids 1 - Exam Constitutional: No acute distress, conversant, pleasant Eyes:Anicteric sclerae, moist conjunctiva, no lid-lag, PERRLA, ENMT: Oropharynx clear, no erythema, exudates Neck: Supple, FROM, no masses, or JVD, No carotid bruits, No thyromegaly Lungs: Clear to auscultation, Clear to percussion, Normal respiratory effort, no accessory muscle use Cardiovascular: Heart regular in rate and rhythm, No murmurs, gallops, or rubs, No peripheral edema Abdominal: Soft, Nontender, no guarding, rebound or rigidity, Normoactive bowel sounds, No hepatomegaly, No splenomegaly, No palpable mass Skin: Normal temperature, tone, texture, turgor, no induration, No subcutaneous nodules, No rash, lesions, No ulcers Extremities: No digital cyanosis, No clubbing, Pedal pulses intact and symmet rical, Radial pulses intact and symmetrical, No calf tenderness Psychiatric: Alert and oriented to person, place and time, appropriate affect, intact judgement Neuro: Muscles Strength 5/5 in all 4 extremities, Sensation to light touch grossly present throughout, Cranial nerves II-XII grossly intact, no focal sensory deficits - Labs CBC & Chem 7: 07/01/19 06:52 07/01/19 06:52 Labs: Abnormal Lab Results - Last 24 Hours (Table) 06/30/19 06/30/19 06/30/19 Range/Units 07:09 07:09 16:51 RBC (3.80-5.40) m/uL Hgb (11.4-16.0) gm/dL Hct (34.0-46.0) % Chloride (98-107) mmol/L Glucose (74-99) mg/dL POC Glucose (mg/dL) 229 H (75-99) mg/dL Hemoglobin A1c 8.1 H (4.0-6.0) % Troponin I 0.048 H* (0.000-0.034) ng/mL 06/30/19 07/01/19 07/01/19 Range/Units 20:13 06:52 06:52 RBC 3.44 L (3.80-5.40) m/uL Hgb 9.5 L (11.4-16.0) gm/dL Hct 29.9 L (34.0-46.0) % Chloride 112 H (98-107) mmol/L Glucose 123 H (74-99) mg/dL POC Glucose (mg/dL) 246 H (75-99) mg/dL Hemoglobin A1c (4.0-6.0) % Troponin I (0.000-0.034) ng/mL 07/01/19 07/01/19 Range/Units 06:59 11:29 RBC (3.80-5.40) m/uL Hgb (11.4-16.0) gm/dL Hct (34.0-46.0) % Chloride (98-107) mmol/L Glucose (74-99) mg/dL POC Glucose (mg/dL) 126 H 155 H (75-99) mg/dL Hemoglobin A1c (4.0-6.0) % Troponin I (0.000-0.034) ng/mL Microbiology - Last 24 Hours (Table) 06/30/19 01:02 Urine Culture - Final Urine,Clean Catch 06/29/19 18:01 Blood Culture Gram Stain - Preliminary Blood 06/29/19 18:01 Blood Culture - Final Blood Assessment and Plan Plan: urinary tract infection with gram-negative bacilli and sepsis at prior facility Continue Rocephin -IV fluids - await final blood and urine cultures - urology recs Recent urethral stent placement - repeat UA with signs of infection -urology recs appreciated Diabetes mellitus type 2 insulin requiring -Continue with long-acting insulin, sliding scale, hold metformin -Follow blood sugars -Hemoglobin A1c elevated, will likely need a second oral agent upon discharge Elevated troponin due to stress - likely stress induced - repeat troponin down trending -ECHO pending Hyperchloremic metabolic acidosis - change to 0.45 NS - repeat BMP in a.m. Hypertension, controlled -Follow blood pressures -Continue with Cozaar, Catapres, Norvasc, bisoprolol Asthma without exacerbation -Continue with Flonase, Claritin, Symbicort -As needed albuterol Neuropathy -Lyrica Dyslipidemia -Zetia and TriCor Morbid obesity -Structured outpatient weight loss Chronic: Arthritis History of congestive heart failure before pituitary tumor was removed, however has not had again since pituitary tumor was removed CODE STATUS:Full DVT prophylaxis: SCDs Discussed with: Patient, nursing Anticipated discharge date: in [address]: home A total of 25 minutes was spent on the care of this complex patient more than 50% of the time was spent in counseling and care coordination.
--- NOTE | 2019-07-01 15:32 | ECHOF ---
Referral Reason:elevated troponin MEASUREMENTS -------- HEIGHT: 160.0 cm WEIGHT: 105.7 kg BP: 150/78 IVSd: 1.5 cm (0.6 - 1.1) LVIDd: 5.0 cm (3.9 - 5.3) LVPWd: 1.1 cm (0.6 - 1.1) IVSs: 2.2 cm LVIDs: 2.9 cm LVPWs: 2.0 cm RVIDd: 4.5 cm (< 3.3) LAESV Index (A-L): 36.19 ml/m Ao Diam: 2.9 cm (2.0 - 3.7) LA Diam: 5.4 cm (2.7 - 3.8) AV Cusp: 1.9 cm (1.5 - 2.6) EPSS: 0.3 cm MV E Brennen: 1.20 m/s MV DecT: 156 ms MV A Brennen: 0.68 m/s MV E/A Ratio: 1.76 RAP: 5.00 mmHg RVSP: 42.80 mmHg MV EF SLOPE: 175.34 mm/s (70 - 150) MV EXCURSION: 17.77 mm (> 18.000) FINDINGS -------- Sinus rhythm. This was a technically adequate study. The left ventricular size is normal. There is mild concentric left ventricular hypertrophy. Overa ll left ventricular systolic function is normal with, an EF between 55 - 60 %. Increased Lap Grade II Diastolic Dysfunction. The right ventricle is moderately enlarged. LA is moderately dilated 34-39 ml/m2 The right atrium is mildly enlarged. Interatrial and interventricular septum intact. The aortic valve is trileaflet and appears structurally normal. There is no evidence of aortic regu rgitation. There is no evidence of aortic stenosis. Mild mitral annular calcification present. Mild mitral regurgitation is present. Mild tricuspid regurgitation present. There is mild pulmonary hypertension. The right ventricular systolic pressure, as measured by Doppler, is 42.80mmHg. There is no pulmonic regurgitation present. The aortic root size is normal. The inferior vena cava is mildly dilated. There is no pericardial effusion. CONCLUSIONS -------- 1. Sinus rhythm. 2. This was a technically adequate study. 3. The left ventricular size is normal. 4. There is mild concentric left ventricular hypertrophy. 5. Overall left ventricular systolic function is normal with, an EF between 55 - 60 %. 6. Increased Lap Grade II Diastolic Dysfunction. 7. The right ventricle is moderately enlarged. 8. LA is moderately dilated 34-39 ml/m2 9. The right atrium is mildly enlarged. 10. Interatrial and interventricular septum intact. 11. The aortic valve is trileaflet and appears structurally normal. 12. There is no evidence of aortic regurgitation. 13. There is no evidence of aortic stenosis. 14. Mild mitral annular calcification present. 15. Mild mitral regurgitation is present. 16. Mild tricuspid regurgitation present. 17. There is mild pulmonary hypertension. 18. The right ventricular systolic pressure, as measured by Doppler, is 42.80mmHg. 19. There is no pulmonic regurgitation present. 20. The aortic root size is normal. 21. The inferior vena cava is mildly dilated. 22. There is no pericardial effusion. RETENTION MANAGER: Daija Suh RDCS
[2019-07-01 17:22] LABS: Glucose,Whole Blood 208 mg/dL (75-99)
[2019-07-01 19:55] LABS: Glucose,Whole Blood 212 mg/dL (75-99)
[2019-07-01] MEDS: cloNIDine HCL 0.1 MG TAB PO SCH (21:32)
[2019-07-01] MEDS: INSULIN DETEMIR (LEVEMIR) 100 UNIT/ML SYR SQ SCH (21:38)
[2019-07-02 07:09] LABS: Glucose,Whole Blood 137 mg/dL (75-99)
[2019-07-02] MEDS: ACETAMINOPHEN TAB 325 MG TAB PO PRN (07:48)
[2019-07-02] MEDS: INSULIN ASPART (NovoLOG) 100 UNIT/ML VIAL SQ SCH ×4 (07:49→21:19)
[2019-07-02] MEDS: LOSARTAN 50 MG TAB PO SCH (07:50)
[2019-07-02] MEDS: BISOPROLOL 5 MG TAB PO SCH (07:51)
[2019-07-02] MEDS: LORATADINE 10 MG TAB PO PRN (07:51)
[2019-07-02] MEDS: ASPIRIN 81 MG PO SCH (07:51)
[2019-07-02] MEDS: FENOFIBRATE 160 MG TAB PO SCH (07:52)
[2019-07-02] MEDS: EZETIMIBE 10 MG TAB PO SCH (07:52)
[2019-07-02] MEDS: SODIUM CHLORIDE 0.45% 1,000 ML IV SCH ×2 (07:53→20:05)
[2019-07-02] MEDS: PANTOPRAZOLE 40 MG TABLET PO SCH (08:11)
[2019-07-02] MEDS: SYMBICORT 80-4.5 MCG INHALER INHALATION SCH ×2 (08:16→20:11)
[2019-07-02] MEDS ORDERED: diphenhydrAMINE 25 MG CAP PO PRN (09:26)
[2019-07-02] MEDS ORDERED: DICYCLOMINE 10 MG CAP PO PRN (10:31)
--- NOTE | 2019-07-02 10:35 | P.PN ---
Subjective Progress Note Date: 07/02/19 Patient seen and examined at bedside complain of suprapubic pain and intermittent bladder spasms Objective - Vital Signs Vital signs: Vital Signs Temp 98.9 F 07/02/19 04:56 Pulse 72 07/02/19 04:56 Resp 16 07/02/19 04:56 BP 135/68 07/02/19 04:56 Pulse Ox 95 07/02/19 04:56 Intake & Output 07/01/19 07/02/19 07/02/19 18:59 06:59 18:59 Intake Total 650 1730 Balance 650 1730 Intake: Intake, IV Titration 650 900 Amount Sodium Chloride 0.45% 1, 600 900 000 ml @ 75 mls/hr IV . [id number] [facility] Rx#:[id number] cefTRIAXone 2 gm In 50 Sodium Chloride 0.9% 50 ml @ 100 mls/hr IVPB Q24HR [facility] Rx#:[id number] Oral 830 Other: Voiding Method Toilet Toilet # Voids 1 - Exam Constitutional: No acute distress, conversant, pleasant Eyes: Anicteric sclerae, moist conjunctiva, no lid-lag, PERRLA ENMT: NC/AT,Oropharynx clear, no erythema, exudates Neck:Supple, FROM, no masses, or JVD, No carotid bruits; No thyromegaly Lungs: Clear to auscultation, Clear to percussion, Normal respiratory effort, no accessory muscle use Cardiovascular: Heart regular in rate and rhythm, No murmurs, gallops, or rubs no peripheral edema Abdominal: Soft Nontender, nom distended, no guarding, no rebound or rigidity, Normoactive bowel sounds No hepatomegaly, No splenomegaly, No palpable mass No abdominal wall hernia noted Skin: Normal temperature, tone, texture, turgor, No induration No subcutaneous nodules, No rash, lesions, No ulcers Extremities:No digital cyanosis No clubbing, Pedal pulses intact and symmetrical Radial pulses intact and symmetrical Normal gait and station, No calf tenderness Psychiatric: Alert and oriented to person, place and time, Appropriate affect Intact judgement Neuro: Muscles Strength 5/5 in all 4 extremities, Sensation to light touch grossly present throughout, Cranial nerves II-XII grossly intact. No focal sensory deficits - Labs CBC & Chem 7: 07/01/19 06:52 07/01/19 06:52 Labs: Abnormal Lab Results - Last 24 Hours (Table) 07/01/19 07/01/19 07/01/19 Range/Units 06:52 06:52 11:29 RBC 3.44 L (3.80-5.40) m/uL Hgb 9.5 L (11.4-16.0) gm/dL Hct 29.9 L (34.0-46.0) % Chloride 112 H (98-107) mmol/L Glucose 123 H (74-99) mg/dL POC Glucose (mg/dL) 155 H (75-99) mg/dL 07/01/19 07/01/19 07/02/19 Range/Units 17:02 19:54 06:57 RBC (3.80-5.40) m/uL Hgb (11.4-16.0) gm/dL Hct (34.0-46.0) % Chloride (98-107) mmol/L Glucose (74-99) mg/dL POC Glucose (mg/dL) 208 H 212 H 137 H (75-99) mg/dL Microbiology - Last 24 Hours (Table) 06/29/19 18:01 Blood Culture Gram Stain - Preliminary Blood Blood Culture - Preliminary Enterobacter cloacae Complex Escherichia coli 06/30/19 01:02 Urine Culture - Final Urine,Clean Catch Assessment and Plan Plan: urinary tract infection with gram-negative bacilli and sepsis at prior facility - Vanco discontinued and continue Rocephin -IV fluids change to 0.45 due to hyperchloremia -Blood cultures growing E. coli and Enterobacter Clocae, ID consulted for cooper dumont recommendations - urology recs Recent urethral stent placement - repeat UA with signs of infection -urology recs appreciated Diabetes mellitus type 2 insulin requiring -Continue with long-acting insulin, sliding scale, hold metformin -Follow blood sugars -Hemoglobin A1c pending Elevated troponin due to stress - likely stress induced - repeat troponin down trending - check ECHO Hyperchloremic metabolic acidosis - change to 0.45 NS - repeat BMP Hypertension, controlled -Follow blood pressures -Continue with Cozaar, Catapres, Norvasc, bisoprolol Asthma without exacerbation -Continue with Flonase, Claritin, Symbicort -As needed albuterol Neuropathy -Lyrica Dyslipidemia -Zetia and TriCor Morbid obesity -Structured outpatient weight loss Chronic: Arthritis History of congestive heart failure before pituitary tumor was removed, however has not had again since pituitary tumor was removed CODE STATUS:Full DVT prophylaxis: SCDs Discussed with: Patient, nursing Anticipated discharge date: in 1-[address]: home A total of 25 minutes was spent on the care of this complex patient more than 50% of the time was spent in counseling and care coordination.
[2019-07-02 11:31] LABS: Glucose,Whole Blood 196 mg/dL (75-99)
[2019-07-02] MEDS: KETOROLAC 30 MG/ML 1 ML VIAL IVP PRN ×2 (12:42→21:31)
[2019-07-02 17:17] LABS: Glucose,Whole Blood 179 mg/dL (75-99)
[2019-07-02] MEDS: CITALOPRAM HYDROBROMIDE 20 MG TAB PO SCH (17:25)
[2019-07-02] MEDS: PREGABALIN 75 MG CAP PO SCH (17:25)
[2019-07-02] MEDS: amLODIPine 5 MG TAB PO SCH (17:25)
[2019-07-02 20:07] LABS: Glucose,Whole Blood 299 mg/dL (75-99)
[2019-07-02] MEDS ORDERED: PREGABALIN 75 MG CAP PO SCH (21:00)
[2019-07-02] MEDS ORDERED: amLODIPine 5 MG TAB PO SCH (21:00)
[2019-07-02] MEDS ORDERED: CITALOPRAM HYDROBROMIDE 20 MG TAB PO SCH (21:00)
[2019-07-02] MEDS: INSULIN DETEMIR (LEVEMIR) 100 UNIT/ML SYR SQ SCH (21:19)
[2019-07-02] MEDS: cloNIDine HCL 0.1 MG TAB PO SCH (21:21)
[2019-07-02] MEDS: MELATONIN 3 MG TABLET PO PRN (22:46)
--- NOTE | 2019-07-02 22:48 | P.CONS ---
History of Present Illness - Reason for Consult Consult date: 07/02/19 antibiotics recomendation for bacteremia Requesting physician: Jesse Carney - Chief Complaint Not feeling well and fever x 1 day - History of Present Illness Patient is a 63-year-old female who is status post left double-J ureteral stent placement for left-sided hydronephrosis on June 20, 2019 patient says she received a 3-day course of oral Keflex for antibiotic prophylaxis patient seemed to have problem with urinary frequency and burning and some pain to the left flank area and she was told it was expected post surgery however on June 28 patient symptom got worse she was feeling sick diet had no energy she was having no pain in the left flank area more of a dull aching to sharp with intensity about 5-6 out of 10 and no radiation with persistent urinary symptoms and started having a fever with chills she presented to [facility] with the patient was evaluated she did have a CT of abdominal pelvis which did show she did have a left-sided ureteral stent but no hydronephrosis patient did have a fever elevated white count with concern for UTI per second sepsis patient was initially kept here and treated with IV antibiotic therapy the blood cultures coming back positive the patient has been transferred to [facility] on June 29, 2019 for further work-up patient has been afebrile since the patient has been at this facility patient did have elevated white count on admission was 9 point with subsequent normalized she is currently on Rocephin 2 g daily with the blood cultures coming back positive with Enterobacter cloaca ID was consulted for further recommendation regarding antibiotic therapy. 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, EGD with ballooning of stenosis secondary to lap band Past Anesthesia/Blood Transfusion Reactions: Postoperative Nausea & Vomiting (PONV) Past Psychological History: Anxiety, Depression Smoking Status: Former smoker - Past Family History Mother Family Medical History: Cancer, Hypertension Additional Family Medical History / Comment(s): MS Medications and Allergies Home Medications Medication Instructions Recorded Confirmed Type ALPRAZolam [Xanax] 0.125 - 0.25 mg PO Q6H PRN 06/29/19 06/30/19 History Acetaminophen Tab [Tylenol Tab] 650 mg PO BID 06/29/19 06/30/19 History Albuterol Inhaler [Ventolin Hfa 1 - 2 puff INHALATION RT-Q6H PRN 06/29/19 06/30/19 History Inhaler] Aspirin [Adult Low Dose Aspirin EC] 81 mg PO HS 06/29/19 06/30/19 History Budesonide/Formoterol Fumarate 2 puff INHALATION RT-DAILY PRN 06/29/19 06/30/19 History [Symbicort 80-4.5 Mcg Inhaler] Calcipotriene 1 applic TOPICAL DAILY PRN 06/29/19 06/30/19 History Citalopram Hydrobromide [CeleXA] 40 mg PO HS 06/29/19 06/30/19 History Cyclobenzaprine [Flexeril] 5 mg PO TID PRN 06/29/19 06/30/19 History Ezetimibe [Zetia] 10 mg PO DAILY 06/29/19 06/30/19 History Fenofibrate Nanocrystallized 145 mg PO DAILY 06/29/19 06/30/19 History [Tricor] Fluticasone Nasal [place] [Flonase 1 spray EA NOSTRIL DAILY 06/29/19 06/30/19 Hi story Nasal [place]] Insulin Glargine,Hum.rec.anlog 53 unit SQ HS 06/29/19 06/30/19 History [Basaglar Kwikpen U-100] Loratadine [Claritin] 10 mg PO DAILY 06/29/19 06/30/19 History Losartan Potassium [Cozaar] 100 mg PO DAILY 06/29/19 06/30/19 History Pantoprazole Sodium [Protonix] 40 mg PO DAILY 06/29/19 06/30/19 History Pregabalin [Lyrica] 75 mg PO HS 06/29/19 06/30/19 History amLODIPine [Norvasc] 5 mg PO HS 06/29/19 06/30/19 History cloNIDine HCL [Catapres] 0.1 mg PO HS 06/29/19 06/30/19 History metFORMIN HCL 1,000 mg PO BID 06/29/19 06/30/19 History Bisoprolol Fumarate [Zebeta] 10 mg PO DAILY 06/30/19 06/30/19 History Calcium Carbonate/Vitamin D3 1 tab PO BID 06/30/19 06/30/19 History [Calcium 500-Vit D3 200 Tablet] Diphenoxylate HCl/Atropine 1 tab PO QID PRN 06/30/19 06/30/19 History [Lomotil 2.5-0.025 mg Tablet] Ferrous Sulfate [Iron (65 MG 325 mg PO HS 06/30/19 06/30/19 History Elemental)] Multivitamins, Thera [Multivitamin 1 tab PO DAILY 06/30/19 06/30/19 History (formulary)] Nystatin 100,000 Unit/gm Powd 1 applic TOPICAL DAILY PRN 06/30/19 06/30/19 History [Mycostatin Powder] Allergies Allergy/AdvReac Type Severity Reaction Status Date / Time acetaminophen Allergy Nausea & Verified 06/30/19 09:03 [From Darvocet-N] Vomiting ciprofloxacin [From Cipro] Allergy Nausea & Verified 06/30/19 09:03 Vomiting codeine Allergy Nausea & Verified 06/30/19 09:03 Vomiting lisinopril Allergy Cough Verified 06/30/19 09:03 morphine Allergy Itching Verified 06/30/19 09:03 propoxyphene Allergy Nausea & Verified 06/30/19 09:03 [From Darvocet-N] Vomiting sulfamethoxazole Allergy Rash/Hives Verified 06/30/19 09:03 [From Bactrim] tramadol [From Ultram] Allergy Nausea & Verified 06/30/19 09:03 Vomiting trimethoprim [From Bactrim] Allergy Rash/Hives Verified 06/30/19 09:03 ketorolac [From Toradol] AdvReac Nausea & Verified 06/30/19 09:03 Vomiting Physical Exam Vitals: Vital Signs Temp Pulse Resp BP Pulse Ox 07/02/19 08:00 98.9 F 72 14 154/88 07/02/19 04:56 98.9 F 72 16 135/68 95 07/02/19 00:00 18 07/01/19 21:47 98.7 F 71 18 171/103 94 L 07/01/19 16:00 17 07/01/19 12:14 98.9 F 64 17 178/96 94 L Intake and Output 07/01/19 07/02/19 07/02/19 22:59 06:59 14:59 Intake Total 1130 600 Balance 1130 600 Intake: Intake, IV Titration 300 600 Amount Sodium Chloride 0.45% 1, 300 600 000 ml @ 75 mls/hr IV . [id number] [facility] Rx#:[id number] Oral 830 Other: Voiding Method Toilet Toilet # Voids 1 1 GENERAL DESCRIPTION: Middle-aged female lying in bed, no distress. No tachypnea or accessory muscle of respiration use. HEENT: Shows Pallor , no scleral icterus. Oral mucous membrane is dry. No pharyngeal erythema or thrush NECK: Trachea central, no thyromegaly. LUNGS: Unlabored breathing. Clear to auscultation anteriorly. No wheeze or c rackle. HEART: S1, S2, regular rate and rhythm. No loud murmur ABDOMEN: Soft, no tenderness , guarding or rigidity, no organomegaly EXTREMITIES: No edema of feet. SKIN: No rash, no masses palpable. NEUROLOGICAL: The patient is awake, alert, oriented x3, mood and affect normal. Results CBC & Chem 7: 07/01/19 06:52 07/01/19 06:52 Labs: Abnormal Lab Results - Last 24 Hours (Table) 07/01/19 07/01/19 07/01/19 Range/Units 11:29 17:02 19:54 POC Glucose (mg/dL) 155 H 208 H 212 H (75-99) mg/dL 07/02/19 Range/Units 06:57 POC Glucose (mg/dL) 137 H (75-99) mg/dL Microbiology - Last 24 Hours (Table) 06/29/19 18:01 Blood Culture Gram Stain - Preliminary Blood Blood Culture - Preliminary Enterobacter cloacae Complex Escherichia coli 06/30/19 01:02 Urine Culture - Final Urine,Clean Catch Assessment and Plan Assessment: 1-patient with gram-negative/Enterobacter bacteremia secondary urinary source in this patient who did have a recent cystoscopy with left double-J stent placement for underlying hydronephrosis failing outpatient oral Keflex therapy 2-patient with antibiotic allergies limiting the number of antibiotics safe to use (1) UTI (urinary tract infection) Current Visit: Yes Status: Acute Code(s): N39.0 - URINARY TRACT INFECTION, SITE NOT SPECIFIED SNOMED Code(s): 66728352 (2) Gram-negative bacteremia Current Visit: Yes Status: Acute Code(s): R78.81 - BACTEREMIA SNOMED Code(s): 337342507754 Plan: 1-Rocephin 2 g daily while waiting for the sensitivities on this Enterobacter to be finalized to determine her discharge antibiotics We will follow on clinical condition and cultures to further adjust medication if needed Thank you for this consultation will follow this patient along with you Time with Patient: Greater than 30
[2019-07-03] MEDS: ACETAMINOPHEN TAB 325 MG TAB PO PRN (06:08)
[2019-07-03 06:56] LABS: Glucose,Whole Blood 166 mg/dL (75-99)
[2019-07-03] MEDS: ASPIRIN 81 MG PO SCH (08:01)
[2019-07-03] MEDS: PANTOPRAZOLE 40 MG TABLET PO SCH (08:01)
[2019-07-03] MEDS: LOSARTAN 50 MG TAB PO SCH (08:01)
[2019-07-03] MEDS: FENOFIBRATE 160 MG TAB PO SCH (08:02)
[2019-07-03] MEDS: INSULIN ASPART (NovoLOG) 100 UNIT/ML VIAL SQ SCH ×2 (08:02→12:46)
[2019-07-03] MEDS: EZETIMIBE 10 MG TAB PO SCH (08:02)
[2019-07-03] MEDS: LORATADINE 10 MG TAB PO PRN (08:02)
[2019-07-03] MEDS: BISOPROLOL 5 MG TAB PO SCH (08:02)
[2019-07-03] MEDS: SYMBICORT 80-4.5 MCG INHALER INHALATION SCH ×2 (08:10→15:58)
[2019-07-03 11:23] LABS: Glucose,Whole Blood 201 mg/dL (75-99)
--- NOTE | 2019-07-03 11:59 | PN ---
PROGRESS NOTE DATE OF SERVICE: 07/03/2019 REASON FOR FOLLOWUP: Enterobacter bacteremia secondary to urinary source. INTERVAL HISTORY: The patient is currently afebrile. The patient is breathing comfortably. The patient denies having any chest pain, shortness of breath or cough. No nausea, no vomiting. No abdominal pain, no diarrhea. PHYSICAL EXAMINATION: Blood pressure 140/82 with a pulse of 68, temperature 98.3. She is 92% on room air. General description is a middle-aged female, lying in bed in no distress. RESPIRATORY SYSTEM: Unlabored breathing, clear to auscultation anteriorly. HEART: S1, S2. Regular rate and rhythm. ABDOMEN: Soft, no tenderness. LABS: No new labs have been obtained today. Blood culture has finalized with the Enterobacter with Cefuroxime and . DIAGNOSTIC IMPRESSION AND PLAN: Patient with Enterobacter likely was secondary to urinary source. With these symptoms, renal stent placement. Patient is responding to IV Rocephin with the patient allergic to CIPRO and BACTRIM and the administration of Cefuroxime. No good oral option available. Hence will recommend getting a midline and send the patient home on a 10 day course of IV Rocephin 2 g daily. Once antibiotic arranged, patient will go home from ID standpoint. MMODL / IJN: [id number] /
[2019-07-03 12:32] VITALS: BP 153/75; PULSE 65; RESP 17; TEMP 97.2
[2019-07-03] MEDS: SODIUM CHLORIDE 0.45% 1,000 ML IV SCH (12:45)
--- NOTE | 2019-07-03 16:09 | P.DS ---
Providers Date of admission: 06/29/19 16:41 Expected date of discharge: 07/03/19 Attending physician: Silvia Benites DO Consults: 06/29/19 18:22 Consult Physician Routine Consulting Provider: Manjeet Mercedes Consult Reason/Comments: bacteremia, possible UTI Do you want consulting provider notified?: Yes 07/02/19 07:22 Consult Physician Routine Consulting Provider: Jarrett Campbell Consult Reason/Comments: antiobiotic guidance Do you want consulting provider notified?: Yes Primary care physician: Stated None Hospital Course: Discharge diagnosis Sepsis Enterobacter Cloace bacteremia UTI due to Enterobacter Type 2 diabetes with hyperglycemia Essential hypertension Asthma without acute exacerbation Dyslipidemia Hyperchloremic metabolic acidosis her recent urethral stent placement Hospital course Patient is a 63-year-old female with past medical history of hypertension, insulin-dependent diabetes mellitus, dyslipidemia, congestive heart failure, prior pituitary tumor, and multiple other medical conditions as listed below who was transferred here from [facility] secondary to sepsis and bacteremia. She states that on June 20 she underwent a left urethral stent placed secondary to hydronephrosis. After this she states she was having left-sided flank pain, increased urination, and excruciating pain with urination. On 06/28 she woke up and didn't feel well and then went back to bed. When she woke up again she was having chills and rigors. She was so weak she felt she could not get out of bed and she subsequently called her friends to help assist her out of bed. She called Dr. Mercedes's answering service who directed her to come to the hospital. At [facility] she underwent an extensive evaluation. She was admitted to observation. She had a CT abdomen and pelvis done which showed a double J stent on the left that appears appropriately positioned with no hydronephrosis, extensive vascular calcifications, hepatomegaly, and old granulomatous disease of the spleen. There is also uncomplicated diverticulosis of the sigmoid colon and post surgical and degenerative changes of the spine. There was concern for urinary tract infec tion and she was subsequently placed in observation. Initial workup demonstrated a urinalysis with white blood cells of 3-5 and red blood cells with 3-5 associated with 2+ leukocyte esterase and negative nitrites. Her lactic acid was elevated at 2.8. Influenza was negative. Initial troponin was negative. White blood cell count was 8.16, hemoglobin 12.2, hematocrit 38, platelets 195, sodium 135, potassium 4.6, chloride 106, CO2 20, BUN 16, and creatinine of 1. Liver enzymes were normal. Initial pro-calcitonin was 0.23. After admission she spiked a fever of 103.6 she was started on vancomycin and Zosyn. Apparently initial blood cultures came back positive for Gram-positive cocci. Apparently pro-calcitonin was redrawn 06/29 and was 96.1. Her lactic acid had improved to 1.2. Creatinine had increased to 1.2. On the morning of 06/29 her initial white blood cell count was 13.47 and her troponin had increased to 0.7. They repeated blood work later that afternoon and repeat troponin was 0.851 and white blood cell count had increased to 15. Case was discussed with Dr. Mercedes who suggested patient be transferred here. Blood cultures eventually grew Enterobacter Clocae and ID was consulted at the patient had previously failed outpatient therapy with Keflex and had multiple antibiotic ALLERGIES to Cipro and Bactrim. The patient was seen by Dr. Campbell and a midline was ordered and the patient was discharged home on IV Rocephin for the remaining 10 days. This discharge process took approximately 35 minutes. Focused exam Abdomen: Soft nontender nondistended normal bowel sounds 4 quadrants Patient Condition at Discharge: Good Plan - Discharge Summary Discharge Rx Participant: No New Discharge Prescriptions: New cefTRIAXone [Rocephin] 2,000 mg IVP Q24HR #10 vial Continue Acetaminophen Tab [Tylenol] 650 mg PO BID Cyclobenzaprine [Flexeril] 5 mg PO TID PRN PRN Reason: Mild Spasms cloNIDine HCL [Catapres] 0.1 mg PO HS Citalopram Hydrobromide [CeleXA] 40 mg PO HS Aspirin [Adult Low Dose Aspirin EC] 81 mg PO HS amLODIPine [Norvasc] 5 mg PO HS ALPRAZolam [Xanax] 0.125 - 0.25 mg PO Q6H PRN PRN Reason: Agitation Or Acute Anxiety Albuterol Inhaler [Ventolin Hfa Inhaler] 1 - 2 puff INHALATION RT-Q6H PRN PRN Reason: Shortness Of Breath Calcipotriene 1 applic TOPICAL DAILY PRN PRN Reason: PSORIASIS Budesonide/Formoterol Fumarate [Symbicort 80-4.5 Mcg Inhaler] 2 puff INHALATION RT-DAILY PRN PRN Reason: Shortness Of Breath Fenofibrate Nanocrystallized [Tricor] 145 mg PO DAILY Fluticasone Nasal [place] [Flonase Nasal [place]] 1 spray EA NOSTRIL DAILY Pregabalin [Lyrica] 75 mg PO HS Ezetimibe [Zetia] 10 mg PO DAILY metFORMIN HCL 1,000 mg PO BID Pantoprazole Sodium [Protonix] 40 mg PO DAILY Losartan Potassium [Cozaar] 100 mg PO DAILY Insulin Glargine,Hum.rec.anlog [Basaglar Kwikpen U-100] 53 unit SQ HS Loratadine [Claritin] 10 mg PO DAILY Bisoprolol Fumarate [Zebeta] 10 mg PO DAILY Calcium Carbonate/Vitamin D3 [Calcium 500-Vit D3 200 Tablet] 1 tab PO BID Diphenoxylate HCl/Atropine [Lomotil 2.5-0.025 mg Tablet] 1 tab PO QID PRN PRN Reason: Loose Stool Ferrous Sulfate [Iron (65 MG Elemental)] 325 mg PO HS Multivitamins, Thera [Multivitamin (formulary)] 1 tab PO DAILY Nystatin 100,000 Unit/gm Powd [Mycostatin Powder] 1 applic TOPICAL DAILY PRN PRN Reason: Rash Discharge Medication List ALPRAZolam [Xanax] 0.125 - 0.25 mg PO Q6H PRN 06/29/19 [History] Acetaminophen Tab [Tylenol] 650 mg PO BID 06/29/19 [History] Albuterol Inhaler [Ventolin Hfa Inhaler] 1 - 2 puff INHALATION RT-Q6H PRN 06/29/19 [History] Aspirin [Adult Low Dose Aspirin EC] 81 mg PO HS 06/29/19 [History] Budesonide/Formoterol Fumarate [Symbicort 80-4.5 Mcg Inhaler] 2 puff INHALATION RT-DAILY PRN 06/29/19 [History] Calcipotriene 1 applic TOPICAL DAILY PRN 06/29/19 [History] Citalopram Hydrobromide [CeleXA] 40 mg PO HS 06/29/19 [History] Cyclobenzaprine [Flexeril] 5 mg PO TID PRN 06/29/19 [History] Ezetimibe [Zetia] 10 mg PO DAILY 06/29/19 [History] Fenofibrate Nanocrystallized [Tricor] 145 mg PO DAILY 06/29/19 [History] Fluticasone Nasal [place] [Flonase Nasal [place]] 1 spray EA NOSTRIL DAILY 06/29/19 [History] Insulin Glargine,Hum.rec.anlog [Basaglar Kwikpen U-100] 53 unit SQ HS 06/29/19 [History] Loratadine [Claritin] 10 mg PO DAILY 06/29/19 [History] Losartan Potassium [Cozaar] 100 mg PO DAILY 06/29/19 [History] Pantoprazole Sodium [Protonix] 40 mg PO DAILY 06/29/19 [History] Pregabalin [Lyrica] 75 mg PO HS 06/29/19 [History] amLODIPine [Norvasc] 5 mg PO HS 06/29/19 [History] cloNIDine HCL [Catapres] 0.1 mg PO HS 06/29/19 [History] metFORMIN HCL 1,000 mg PO BID 06/29/19 [History] Bisoprolol Fumarate [Zebeta] 10 mg PO DAILY 06/30/19 [History] Calcium Carbonate/Vitamin D3 [Calcium 500-Vit D3 200 Tablet] 1 tab PO BID 07/08 [History] Diphenoxylate HCl/Atropine [Lomotil 2.5-0.025 mg Tablet] 1 tab PO QID PRN 06/30/19 [History] Ferrous Sulfate [Iron (65 MG Elemental)] 325 mg PO HS 06/30/19 [History] Multivitamins, Thera [Multivitamin (formulary)] 1 tab PO DAILY 06/30/19 [History] Nystatin 100,000 Unit/gm Powd [Mycostatin Powder] 1 applic TOPICAL DAILY PRN 06/30/19 [History] cefTRIAXone [Rocephin] 2,000 mg IVP Q24HR #10 vial 07/03/19 [Rx] Follow up Appointment(s)/Referral(s): [facility], [NON-STAFF] - As Needed [facility], [REFERRING] - As Needed Jarrett Campbell MD [STAFF PHYSICIAN] - 07/14/19 10:30 am Patient Instructions/Handouts: Ceftriaxone (By injection), Urinary Tract Infection in Women (DC), Sepsis (GEN) Discharge Disposition: HOME SELF-CARE
== END 2019-07-03 16:16 | disposition home health service (06) | DRG 872 ==
LOC: 3NMEDONC 16:41
PROVIDERS: ADMIT Internal Medicine; ATTEND Internal Medicine
PROC: 05HF33Z Insertion of Infusion Device into Left Cephalic Vein, Percutaneous Approach (ICD-10-PCS; principal; 2019-07-03 07:30)
DX: A41.50 Gram-negative sepsis, unspecified (principal); E87.2 Acidosis; N13.6 Pyonephrosis; Z68.41 Body mass index [BMI] 40.0-44.9, adult; E11.65 Type 2 diabetes mellitus with hyperglycemia; E66.01 Morbid (severe) obesity due to excess calories; E78.5 Hyperlipidemia, unspecified; E87.8 Other disorders of electrolyte and fluid balance, not elsewhere classified; F32.9 Major depressive disorder, single episode, unspecified; F41.9 Anxiety disorder, unspecified; E11.42 Type 2 diabetes mellitus with diabetic polyneuropathy; I11.0 Hypertensive heart disease with heart failure; I50.9 Heart failure, unspecified; J45.909 Unspecified asthma, uncomplicated; M19.90 Unspecified osteoarthritis, unspecified site; N32.89 Other specified disorders of bladder; N39.498 Other specified urinary incontinence; R65.20 Severe sepsis without septic shock; Z79.4 Long term (current) use of insulin; Z79.51 Long term (current) use of inhaled steroids; Z79.82 Long term (current) use of aspirin; Z79.899 Other long term (current) drug therapy; Z82.49 Family history of ischemic heart disease and other diseases of the circulatory system; Z87.442 Personal history of urinary calculi; Z87.891 Personal history of nicotine dependence; Z88.1 Allergy status to other antibiotic agents; Z90.710 Acquired absence of both cervix and uterus; Z88.6 Allergy status to analgesic agent; Z88.5 Allergy status to narcotic agent; Z71.3 Dietary counseling and surveillance
CPT/HCPCS: 36410; 71045; 76937; 80048; 80053; 81001; 83036; 83605; 83735; 84100; 84484; 85027; 85610; 87040; 87077; 87086; 87186; 93306

== ENCOUNTER → 2021-06-16 | Outpatient (CLI) | payer MEDICARE, OTHER ==
[2021-06-16 23:02] LABS: HCT 37.8 % (37.2-46.3); MCH 27.1 pg (27.0-32.0); MCHC 31.7 g/dL (32.0-37.0); MCV 85.3 fL (80.0-97.0); Mean Platelet Volume 12.1 fL (9.5-12.2); Platelet Count 248 X 10*3/uL (140-440); RBC 4.43 X 10*6/uL (4.10-5.20); RDW 14.6 % (11.5-14.5); WBC 7.68 X 10*3/uL (4.50-10.00)
[2021-06-17 12:28] LABS: Anti-Smith Ab Interp NEGATIVE (NEGATIVE); Cyclic Citrull Pep IgG Unit <0.5 U/mL; Cyclic Citrullinated Pep IgG NEGATIVE (NEGATIVE)
[2021-06-17 16:36] LABS: ALT 20 U/L (8-44); AST 25 U/L (13-35); African American GFR (CKD) 83.3 (60.0-200.0); Albumin 4.1 g/dL (3.8-4.9); Albumin/Globulin Ratio 1.54 (1.60-3.17); Alkaline Phosphatase 69 U/L (41-126); BUN/Creat Ratio 23.39 Ratio (12.00-20.00); Calcium 9.4 mg/dL (8.7-10.3); Carbon Dioxide 13.1 mmol/L (21.6-31.8); Chloride 107 mmol/L (96-109); Folate, Serum >20.00 ng/mL (4.40-31.00); Globulin 2.7 g/dL (1.6-3.3); Glucose 190 mg/dL (70-110); Non-African American GFR(CKD) 71.9 (60.0-200.0); Potassium 4.5 mmol/L (3.5-5.5); Sodium 139 mmol/L (135-145); Total Bilirubin <0.20 mg/dL (0.30-1.20); Total Protein 6.8 g/dL (6.2-8.2)
== END | disposition home or self-care (01) ==
LOC: LABWHC1 12:52
PROVIDERS: ATTEND Psychiatry & Neurology Neurology
DX: M25.50 Pain in unspecified joint (principal); R41.3 Other amnesia
CPT/HCPCS: 36415; 80053; 82306; 82607; 82746; 84439; 84443; 84481; 85027; 86200; 86235